=== PATIENT | female | born 1985 | race American Indian/Alaskan Native ===

== ENCOUNTER 2020-07-21 03:58 | Emergency (ER) | payer SELFPAY ==
[2020-07-21 04:05] VITALS: BP 159/96
[2020-07-21] MEDS ORDERED: IBUPROFEN 800 MG TAB PO ONE (04:15)
[2020-07-21 04:50] LABS: HCG Qualitative,Urine Negative (Negative)
[2020-07-21 04:58] LABS: Bacteria,Urine 2+ /HPF (Negative); Bilirubin,Urine NEG (Negative); Blood,Urine MOD (Negative); Color,Urine Yellow (Yellow); Urobilinogen,Urine < 2.0 mg/dL (<2.0)
[2020-07-21 05:06] LABS: WBC,Urine > 182.0 /HPF (0.0-6.0)
--- NOTE | 2020-07-21 05:12 | Emergency Department Report ---
ED Female HPI - General Chief complaint: Abdominal Pain Stated complaint: LOWER BACK PAIN/ABDOMINAL PAIN Time Seen by Provider: 07/21/20 04:11 Source: patient Mode of arrival: Ambulatory Limitations: No Limitations - History of Present Illness Initial comments: Patient is a 35-year-old F [place] female said 2 days of suprapubic pain with dysuria. Patient states pain does radiate into the left flank. She denies nausea vomiting. Pain is 6 out of 10 in severity. She has urinary frequency. She denies any fever cough cold congestion or diarrhea. - Related Data Previous Rx's Medication Instructions Recorded Last Taken Type Phenazopyridine [Pyridium] 200 mg PO BID #6 tab 07/21/20 Unknown Rx levoFLOXacin [Levaquin TAB] 500 mg PO QDAY #7 tablet 07/21/20 Unknown Rx traMADoL [Ultram] 50 mg PO Q6HR PRN #12 tablet 07/21/20 Unknown Rx Allergies Allergy/AdvReac Type Severity Reaction Status Date / Time Penicillins Allergy Unknown Verified 07/21/20 04:06 shellfish derived Allergy Unknown Verified 07/21/20 04:06 ED Review of Systems ROS: Stated complaint: LOWER BACK PAIN/ABDOMINAL PAIN Other details as noted in HPI Comment: All other systems reviewed and negative ED Past Medical Hx - Past Medical History Previous Medical History?: Yes Hx Asthma: Yes - Surgical History Past Surgical History?: No - Social History Smoking Status: Never Smoker Substance Use Type: Alcohol - Medications Home Medications: Home Medications Medication Instructions Recorded Confirmed Last Taken Type Phenazopyridine [Pyridium] 200 mg PO BID #6 tab 07/21/20 Unknown Rx levoFLOXacin [Levaquin TAB] 500 mg PO QDAY #7 tablet 07/21/20 Unknown Rx traMADoL [Ultram] 50 mg PO Q6HR PRN #12 tablet 07/21/20 Unknown Rx ED Physical Exam - General Limitations: No Limitations General appearance: alert, in no apparent distress - Head Head exam: Present: atraumatic, normocephalic - Eye Eye exam: Present: normal appearance - ENT ENT exam: Present: mucous membranes moist - Neck Neck exam: Present: normal inspection - Respiratory Respiratory exam: Present: normal lung sounds bilaterally. Absent: respiratory distress, wheezes, rales - Cardiovascular Cardiovascular Exam: Present: regular rate, normal rhythm. Absent: systolic murmur, diastolic murmur, rubs, gallop - GI/Abdominal GI/Abdominal exam: Present: soft, tenderness (suprapubic), normal bowel sounds. Absent: distended, guarding, rebound - Extremities Exam Extremities exam: Present: normal inspection - Back Exam Back exam: Present: normal inspection - Neurological Exam Neurological exam: Present: alert, oriented X3 - Psychiatric Psychiatric exam: Present: normal affect, normal mood - Skin Skin exam: Present: warm, dry, intact, normal color. Absent: rash ED Course Vital Signs 07/21/20 04:05 Temperature 99.5 F Pulse Rate 110 H Respiratory 18 Rate Blood Pressure 159/96 [Right] O2 Sat by Pulse 98 Oximetry ED Medical Decision Making - Lab Data Lab Results 07/21/20 07/21/20 Range/Units 04:14 04:16 Urine Color Yellow (Yellow) Urine Turbidity Cloudy (Clear) Urine pH 6.0 (5.0-7.0) Ur Specific [place] 1.016 (1.003-1.030) Urine Protein 100 mg/dl (Negative) mg/dL Urine Glucose (UA) 50 (Negative) mg/dL Urine Ketones Neg (Negative) mg/dL Urine Blood Mod (Negative) Urine Nitrite Neg (Negative) Urine Bilirubin Neg (Negative) Urine Urobilinogen < 2.0 (<2.0) mg/dL Ur Leukocyte Esterase Neg (Negative) Urine WBC (Auto) > 182.0 H (0.0-6.0) /HPF Urine RBC (Auto) 59.0 (0.0-6.0) /HPF U Epithel Cells (Auto) 1.0 (0-13.0) /HPF Urine Bacteria (Auto) 2+ (Negative) /HPF Urine WBC Clumps 2+ /HPF Urine Yeast (Budding) 2+ /HPF Urine HCG, Qual Negative (Negative) Critical care attestation.: If time is entered above; I have spent that time in minutes in the direct care of this critically ill patient, excluding procedure time. ED Disposition Clinical Impression: Acute cystitis with hematuria Disposition: TO HOME OR SELFCARE Is pt being admited?: No Does the pt Need Aspirin: No Condition: Stable Instructions: Abdominal Pain (ED), Urinary Tract Infection, Adult Referrals: PRIMARY CARE, [Primary Care Provider] - 3-5 Days Time of Disposition: 05:13
== END 2020-07-21 05:20 | disposition home or self-care (01) ==
LOC: ED 03:58
DX: N30.01 Acute cystitis with hematuria (principal); J45.909 Unspecified asthma, uncomplicated; Z79.899 Other long term (current) drug therapy; Z91.013 Allergy to seafood; Z88.0 Allergy status to penicillin
CPT/HCPCS: 81001; 81025; 99283

== ENCOUNTER 2020-12-31 14:26 | Emergency (ER) | payer MEDICAID ==
[2020-12-31 15:09] VITALS: BP 127/87
[2020-12-31 16:47] LABS: Hematocrit 41.7 % (30.3-42.9); Hemoglobin 14.2 gm/dl (10.1-14.3); Mean Corpuscular HGB Conc 34 % (30-34); Mean Corpuscular Volume 85 fl (79-97); Platelet Count 237 K/mm3 (140-440); Red Blood Count 4.92 M/mm3 (3.65-5.03)
[2020-12-31 17:08] LABS: Alanine Aminotransferase 13 units/L (7-56); Albumin 4.6 g/dL (3.9-5); BUN/Creatinine Ratio 10; Blood Urea Nitrogen 8 mg/dL (7-17); Calcium 9.7 mg/dL (8.4-10.2); Hemolysis Index 10
--- NOTE | 2020-12-31 17:43 | XRay Report ---
CHEST 2 VIEWS INDICATION / CLINICAL INFORMATION: chest pain. COMPARISON: None available. FINDINGS: SUPPORT DEVICES: None. HEART / MEDIASTINUM: No significant abnormality. LUNGS / PLEURA: No significant pulmonary or pleural abnormality. No pneumothorax. ADDITIONAL FINDINGS: No significant additional findings. IMPRESSION: No significant abnormality Signer Name: Balbir Zhou MD FACR Signed: 12/31/2020 5:39 PM Workstation Name: [email or web address] [id number]
[2020-12-31 19:06] LABS: RBC Morphology Normal; Total Cells Counted 100
--- NOTE | 2020-12-31 19:37 | Emergency Department Report ---
ED General Adult HPI - General Chief complaint: Chest Pain Stated complaint: CHEST PAIN, SORE THROAT, HEADACHE, BODY ACHES Time Seen by Provider: 12/31/20 19:31 Source: patient Mode of arrival: Ambulatory Limitations: No Limitations - History of Present Illness Initial comments: 35-year-old female patient presents to the emergency department with complaints of sore throat, cough, nasal congestion, myalgias, diarrhea, and chest pain starting this week. No known sick contacts. No current steroid or antibiotic use. No recent travel. Patient has been taking TheraFlu, NyQuil, and ibuprofen with limited relief. Patient has not been vaccinated against COVID-19. Denies fever, chills, sneezing, neck stiffness, rash, syncope, shortness of breath, whe ezing. Denies all other complaints at this time. - Related Data Previous Rx's Medication Instructions Recorded Last Taken Type Phenazopyridine [Pyridium] 200 mg PO BID #6 tab 07/21/20 Unknown Rx levoFLOXacin [Levaquin TAB] 500 mg PO QDAY #7 tablet 07/21/20 Unknown Rx traMADoL [Ultram] 50 mg PO Q6HR PRN #12 tablet 07/21/20 Unknown Rx Brompheniramine/Pseudoephed/Dm 118 ml PO Q4H #1 bottle 12/31/20 Unknown Rx [Bromfed Dm Cough Syrup] Allergies Allergy/AdvReac Type Severity Reaction Status Date / Time Penicillins Allergy Unknown Verified 07/21/20 04:06 shellfish derived Allergy Unknown Verified 07/21/20 04:06 ED Review of Systems ROS: Stated complaint: CHEST PAIN, SORE THROAT, HEADACHE, BODY ACHES Other details as noted in HPI Other: GENERAL: Negative for fever, chills, weight change, anorexia, fatigue. ENT: Positive for sore throat and congestion. CARDIOVASCULAR: Positive for chest pain. PULMONARY: Positive for cough GASTROINTESTINAL: Positive for diarrhea MUSCULOSKELETAL: Positive for myalgias. NEUROLOGICAL: Negative for headache, seizure, syncope, paresthesias, weakness. INTEGUMENTARY: Negative for erythema, rash, diaphoresis, laceration, ecchymosis. HEMATOLOGICAL: Negative for hemoptysis, hematemesis, hematochezia, hematuria. PSYCHIATRIC: Negative for hallucinations, suicidal ideation, homicidal ideation, anxiety, depression. ED Past Medical Hx - Past Medical History Previous Medical History?: Yes Hx Asthma: Yes - Surgical History Past Surgical History?: No - Social History Smoking Status: Never Smoker Substance Use Type: Alcohol - Medications Home Medications: Home Medications Medication Instructions Recorded Confirmed Last Taken Type Phenazopyridine [Pyridium] 200 mg PO BID #6 tab 07/21/20 Unknown Rx levoFLOXacin [Levaquin TAB] 500 mg PO QDAY #7 tablet 07/21/20 Unknown Rx traMADoL [Ultram] 50 mg PO Q6HR PRN #12 tablet 07/21/20 Unknown Rx Brompheniramine/Pseudoephed/Dm 118 ml PO Q4H #1 bottle 12/31/20 Unknown Rx [Bromfed Dm Cough Syrup] ED Physical Exam - General Limitations: No Limitations - Other Other exam information: General: Awake and alert. No acute distress. Head: Atraumatic, normocephalic. Eyes: EOMI. Pupils are equal and round. Normal sclera and conjunctiva. ENT: Oral mucosa is moist. Normal pharyngeal exam. Nasal congestion. Neck: Supple. No lymphadenopathy. Pulmonary: No respiratory distress. Clear to auscultation bilaterally. Cardiac: Regular rate and rhythm. Pulses are palpable and equal bilaterally. No lower extremity cyanosis or edema. Skin: Warm and dry. No rashes. Abdomen: Soft, non-tender, non-protuberant. No guarding, rigidity, or rebound. Bowel sounds are normal. No organomegaly or masses noted. Back: Normal alignment. No CVA tenderness. Extremities: Symmetrical. Full range of motion intact. Neurological: Alert and oriented, appropriately interactive, no focal deficits. Psych: Cooperative. Appropriate mood and affect. Speech is evenly metered. Thoughts are logically construed. ED Course Vital Signs 12/31/20 15:08 Temperature 98.9 F Pulse Rate 110 H Respiratory 18 Rate Blood Pressure 127/87 O2 Sat by Pulse 98 Oximetry ED Medical Decision Making - Lab Data Result diagrams: 12/31/20 15:46 12/31/20 15:46 - Medical Decision Making Differential diagnosis including but not limited to: pneumonia, sinusitis, COVID-19, influenza, gastroenteritis On reevaluation, patient is stable. Tachycardia improved without intervention. Repeat heart rate 101 bpm. Diagnostic evaluation initiated by vice president of sales prior to medical screening exam --labs are unremarkable, chest x-ray is negative. Patient is afebrile, hemodynamically stable, no hypoxia, no respiratory distress. Exceedingly low clinical suspicion for acute coronary syndrome. History and exam findings suggestive of viral infection; no clinical indication for further diagnostic work-up on an emergent basis at this time. Patient will be discharged home with appropriate symptomatic treatment and referred to primary care provider for close outpatient follow-up. Patient expressed understanding and is agreeable to plan of care. Disease transmission precautions discussed. Strict return precautions provided. Repeat exam is unremarkable and benign. History, exam, diagnostic testing, and current condition do not suggest worrisome pathology to warrant further testing, continued ED treatment, admission, or surgical evaluation at this point. Given the low probability of a significant medical illness, it would be more likely to result in harm than benefit to perform further testing at this stage. Discussed findings, presumptive diagnosis, need for follow-up and specific signs/symptoms that should prompt immediate return to the emergency department. Instructions were explained in detail to the patient in addition to giving written discharge information. Patient expressed understanding and was given the opportunity to ask questions, all of which were satisfactorily answered prior to discharge home. Critical care attestation.: If time is entered above; I have spent that time in minutes in the direct care of this critically ill patient, excluding procedure time. ED Disposition Clinical Impression: Viral illness Disposition: DC-01 TO HOME OR SELFCARE Is pt being admited?: No Does the pt Need Aspirin: No Condition: Stable Instructions: Viral Respiratory Infection Additional Instructions: Take Tylenol every 4 hours and Motrin every 8 hours as needed for pain. Take Bromfed as directed for cough/congestion. Rest. Drink plenty fluids. Wash hands frequently to prevent disease transmission. Do not share food or drinks with others. Follow-up with primary care provider this week. Call tomorrow to schedule an appointment. See referral information below. Return to the emergency department immediately for new or worsening symptoms. Prescriptions: Brompheniramine/Pseudoephed/Dm [Bromfed Dm Cough Syrup] 118 ml PO Q4H #1 bottle Referrals: ALIYA POLANCO MD [Staff Physician] - 3-5 Days [facility] [Outside] - 3-5 Days [facility] [Outside] - 3-5 Days [facility] [Outside] - 3-5 Days [facility] [Provider Group] - 3-5 Days Time of Disposition: 19:39
--- NOTE | 2021-01-03 19:11 | Electrocardiograph Report ---
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
== END 2020-12-31 20:03 | disposition home or self-care (01) ==
LOC: ED 14:26
DX: B34.9 Viral infection, unspecified (principal); J02.9 Acute pharyngitis, unspecified; R05 Cough; R09.89 Other specified symptoms and signs involving the circulatory and respiratory systems; J45.909 Unspecified asthma, uncomplicated; Z72.89 Other problems related to lifestyle; Z88.0 Allergy status to penicillin; Z91.013 Allergy to seafood
CPT/HCPCS: 36415; 71046; 80053; 84484; 84703; 85007; 85025; 93005; 99283

== ENCOUNTER 2021-01-02 21:30 | Emergency (ER) | payer MEDICAID ==
--- NOTE | 2021-01-02 22:31 | Emergency Department Report ---
ED General Adult HPI - General Chief complaint: Upper Respiratory Infection Stated complaint: CHEST PAIN,COUGH & CONGESTION Time Seen by Provider: 01/02/21 22:08 Source: patient Mode of arrival: Ambulatory Limitations: No Limitations - History of Present Illness Initial comments: Pt is a 35-year-old female who presents for complaints of sore throat, cough, nasal congestion, myalgias, diarrhea, and chest pain with cough starting this week. states she was seen 2 days ago but left prior to receiving discharge paper worrk, pt denies worsening symptoms., no new fever, no n/v, no sob, no wheezing. No recent travel. symptoms temporarily relieved by otc tylenol, theraflu. Patient has not been vaccinated against COVID-19. - Related Data Previous Rx's Medication Instructions Recorded Last Taken Type Phenazopyridine [Pyridium] 200 mg PO BID #6 tab 07/21/20 Unknown Rx levoFLOXacin [Levaquin TAB] 500 mg PO QDAY #7 tablet 07/21/20 Unknown Rx traMADoL [Ultram] 50 mg PO Q6HR PRN #12 tablet 07/21/20 Unknown Rx Brompheniramine/Pseudoephed/Dm 118 ml PO Q4H #1 bottle 12/31/20 Unknown Rx [Bromfed Dm Cough Syrup] Guaifenesin/Pseudoephedrne HCl 1 each PO BID #24 tab.er.12h 01/02/21 Unknown Rx [Mucinex D ER 1,200-120 mg Tab] Ibuprofen [Motrin 800 MG tab] 800 mg PO Q8HR PRN #30 tablet 01/02/21 Unknown Rx Allergies Allergy/AdvReac Type Severity Reaction Status Date / Time Penicillins Allergy Unknown Verified 07/21/20 04:06 shellfish derived Allergy Unknown Verified 07/21/20 04:06 ED Review of Systems ROS: Stated complaint: CHEST PAIN,COUGH & CONGESTION Other details as noted in HPI Constitutional: malaise Eyes: denies: eye pain, eye discharge, vision change ENT: throat pain, congestion Respiratory: cough. denies: shortness of breath, wheezing Cardiovascular: chest pain (with cough ) Endocrine: no symptoms reported Gastrointestinal: denies: abdominal pain, nausea, vomiting, diarrhea Genitourinary: denies: urgency, dysuria, discharge Musculoskeletal: denies: back pain, joint swelling, arthralgia Skin: denies: rash, lesions Neurological: denies: headache, weakness, paresthesias Psychiatric: denies: anxiety, depression Hematological/Lymphatic: denies: easy bleeding, easy bruising ED Past Medical Hx - Past Medical History Hx Asthma: Yes - Social History Smoking Status: Never Smoker - Medications Home Medications: Home Medications Medication Instructions Recorded Confirmed Last Taken Type Phenazopyridine [Pyridium] 200 mg PO BID #6 tab 07/21/20 Unknown Rx levoFLOXacin [Levaquin TAB] 500 mg PO QDAY #7 tablet 07/21/20 Unknown Rx traMADoL [Ultram] 50 mg PO Q6HR PRN #12 tablet 07/21/20 Unknown Rx Brompheniramine/Pseudoephed/Dm 118 ml PO Q4H #1 bottle 12/31/20 Unknown Rx [Bromfed Dm Cough Syrup] Guaifenesin/Pseudoephedrne HCl 1 each PO BID #24 tab.er.12h 01/02/21 Unknown Rx [Mucinex D ER 1,200-120 mg Tab] Ibuprofen [Motrin 800 MG tab] 800 mg PO Q8HR PRN #30 tablet 01/02/21 Unknown Rx ED Physical Exam - General Limitations: No Limitations General appearance: alert, in no apparent distress - Head Head exam: Present: normocephalic, normal inspection - Eye Eye exam: Present: normal appearance, PERRL, EOMI Pupils: Present: normal accommodation - ENT ENT exam: Present: TM's normal bilaterally, normal external ear exam - Expanded ENT Exam Expanded Ear exam: Present: normal external inspection Throat exam: Positive: tonsillar erythema, other (uvula midline no exudate no lesions). Negative: tonsillomegaly, tonsillar exudate, R peritonsillar mass, L peritonsillar mass - Neck Neck exam: Present: normal inspection, full ROM. Absent: tenderness, meningismus, lymphadenopathy, thyromegaly - Respiratory Respiratory exam: Present: normal lung sounds bilaterally, chest wall tenderness (right anterior lateral ). Absent: respiratory distress, wheezes, stridor - Cardiovascular Cardiovascular Exam: Present: regular rate, normal rhythm. Absent: systolic murmur, diastolic murmur, rubs, gallop - GI/Abdominal GI/Abdominal exam: Present: soft, normal bowel sounds. Absent: distended, tenderness, guarding, rebound, rigid, bruit, hernia - Rectal Rectal exam: Present: deferred - Extremities Exam Extremities exam: Present: normal inspection, full ROM, normal capillary refill. Absent: tenderness - Back Exam Back exam: Present: normal inspection, full ROM. Absent: CVA tenderness (R), CVA tenderness (L) - Neurological Exam Neurological exam: Present: alert, oriented X3, CN II-XII intact, normal gait, motor sensory deficit - Psychiatric Psychiatric exam: Present: normal affect, normal mood - Skin Skin exam: Present: warm, dry, intact, normal color. Absent: rash ED Medical Decision Making - Radiology Data Radiology results: report reviewed, image reviewed CHEST 2 VIEWS INDICATION / CLINICAL INFORMATION: chest pain. COMPARISON: None available. FINDINGS: SUPPORT DEVICES: None. HEART / MEDIASTINUM: No significant abnormality. LUNGS / PLEURA: No significant pulmonary or pleural abnormality. No pneumothorax. ADDITIONAL FINDINGS: No significant additional findings. IMPRESSION: No significant abnormality Signer Name: Balbir Zhou MD FACR Signed: 12/31/2020 5:39 PM Workstation Name: [id number] Transcribed By: MS Dictated By: Balbir Zhou MD Electronically Authenticated By: Balbir Zhou MD Signed Date/Time: 12/31/201738 DD/ 38 TD/TT: - Medical Decision Making Resident Segundo Barker readings this is a viral syndrome versus URI. Patient advises no worsening symptoms. Vital signs noted stable patient DC'd home with prescriptions. Patient will follow-up with primary care doctor in 2 to 3 days, patient will hydrate as directed, patient will return to the emergency department should symptoms worsen. vital signs hr: 78, bp: 128/71, r: 16, t 98.3 Critical care attestation.: If time is entered above; I have spent that time in minutes in the direct care of this critically ill patient, excluding procedure time. ED Disposition Clinical Impression: Viral syndrome URI (upper respiratory infection) Qualifiers: URI type: acute pharyngitis Pharyngitis/tonsillitis etiology: unspecified etiology Qualified Code(s): J02.9 - Acute pharyngitis, unspecified Disposition: DC-01 TO HOME OR SELFCARE Is pt being admited?: No Does the pt Need Aspirin: No Condition: Stable Instructions: Viral Illness, Adult Additional Instructions: take medicaions as prescribed, hydrate as directed, follow up wit pcp in 2-3 days Prescriptions: Ibuprofen [Motrin 800 MG tab] 800 mg PO Q8HR PRN #30 tablet PRN Reason: pain fever Guaifenesin/Pseudoephedrne HCl [Mucinex D ER 1,200-120 mg Tab] 1 each PO BID #24 tab.er.12h Referrals: ALEJANDRO XIE MD [Referring] - 3-5 Days Forms: Work/School Release Form(ED) Time of Disposition: 22:40
== END 2021-01-02 22:45 | disposition home or self-care (01) ==
LOC: ED 21:30
DX: J06.9 Acute upper respiratory infection, unspecified (principal); B97.89 Other viral agents as the cause of diseases classified elsewhere; J45.909 Unspecified asthma, uncomplicated; Z79.1 Long term (current) use of non-steroidal anti-inflammatories (NSAID); Z79.899 Other long term (current) drug therapy; Z88.0 Allergy status to penicillin; Z91.013 Allergy to seafood
CPT/HCPCS: 99282